=== PATIENT | female | born 1970 | race Caucasian/White ===

== ENCOUNTER → 2016-12-18 | Outpatient (CLI) | payer BC ==
--- NOTE | 2016-12-18 10:21 | KCIC ---
DATE: 12/18/2016 EXAM: MAMMO JAMES SCREENING BILATERAL HISTORY: Screening COMPARISON: 11/21/2015 This study was interpreted with the benefit of Computerized Aided Detection (CAD). FINDINGS: Breast Density: SCATTERED The breast parenchyma shows scattered fibroglandular densities. Breast parenchyma level B. There has not been a significant change in the appearance of the breasts relative to the previous exam IMPRESSION: Benign finding BI-RADS CATEGORY: 2 BENIGN FINDING(S) RECOMMENDED FOLLOW-UP: 12M 12 MONTH FOLLOW-UP PQRS compliance statement: Patient information was entered into a reminder system with a target due date 12/18/2017 for the next mammogram. Mammography is a sensitive method for finding small breast cancers, but it does not detect them all and is not a substitute for careful clinical examination. A negative mammogram does not negate a clinically suspicious finding and should not result in delay in biopsying a clinically suspicious abnormality. "Our facility is accredited by the [employer] Mammography [employer]."
== END | disposition home or self-care (01) ==
LOC: KCIC MAMMO 09:29
PROVIDERS: ATTEND Family Medicine
DX: Z12.31 Encounter for screening mammogram for malignant neoplasm of breast (principal)
CPT/HCPCS: 77063; G0202; 77067

== ENCOUNTER → 2018-02-05 | Outpatient (CLI) | payer BC ==
--- NOTE | 2018-02-06 12:33 | KCIC ---
Bilateral digital screening mammograms with 3-D tomosynthesis: Reason for examination: Routine screening. Comparison is made to previous studies dated back to 11/18/2014. Bilateral mammograms in CC and oblique projections were obtained with 2-D imaging and 3-D tomosynthesis imaging on a Siemens Inspiration unit and reviewed on the workstation. Interpretation was made with the benefit of CAD. The skin and nipples show no abnormalities. No abnormal axillary lymph nodes are seen. The breast parenchyma shows scattered fatty and fibroglandular density. (Breast density: Category B.) There are no dominant masses, suspicious calcifications or architectural distortion. Impression: No evidence of malignancy. Recommend routine screening. BI-RAD Category 1: Negative. "Our facility is accredited by the [employer] Mammography [employer]." This patient's information has been entered into a reminder system for the patient to be notified with the results of her examination and a target date for the next mammogram. Electronically signed by: Yaritza Ley MD (02/06/2018 12:29 PM) [id number]
== END | disposition home or self-care (01) ==
LOC: KCIC MAMMO 15:51
PROVIDERS: ATTEND Family Medicine
DX: Z12.31 Encounter for screening mammogram for malignant neoplasm of breast (principal)
CPT/HCPCS: 77063; 77067

== ENCOUNTER → 2019-03-03 | Outpatient (CLI) | payer OTHER ==
--- NOTE | 2019-03-05 10:20 | KCIC ---
BILATERAL SCREENING MAMMOGRAM, 3-D History: Routine screening. Comparison: Bilateral mammogram 02/05/2018. Technique: MLO and CC digital tomosynthesis (3D) images obtained. Radiologist reviewed these images on dedicated workstation. Findings: Breast Tissue Density B : There are scattered areas of fibroglandular density. There are no dominant masses, suspicious microcalcifications, or architectural distortion. IMPRESSION: No mammographic evidence of malignancy. Recommend routine screening. BI-RADS category 1: Negative. The images were reviewed with computer-aided detection. Patient information is entered into reminder system with a target due date for the next screening mammogram. Mammography is the most sensitive method for finding small breast cancers, but it does not detect them all and is not a substitute for careful clinical examination. A negative mammogram does not negate a clinically suspicious finding and should not result in delay in biopsying a clinically suspicious abnormality. "Our facility is accredited by the [employer] Mammography [employer]." Electronically signed by: Abrahan Justice MD (03/05/2019 10:17 AM) [id number]
== END | disposition home or self-care (01) ==
LOC: KCIC MAMMO 09:55
PROVIDERS: ATTEND Family Medicine
DX: Z12.31 Encounter for screening mammogram for malignant neoplasm of breast (principal)
CPT/HCPCS: 77063; 77067

== ENCOUNTER → 2020-03-08 | Outpatient (CLI) | payer OTHER ==
--- NOTE | 2020-03-08 14:21 | KCIC ---
Bilateral digital screening mammograms and tomosynthesis Reason for examination: Routine screening. Comparison is made to previous study dated March 03, 2019 and priors Routine CC and MLO digital views obtained. Interpretation was made with the benefit of CAD. The skin and nipples show no abnormalities. No abnormal lymph nodes are seen. The breast parenchyma i s scattered fibroglandular elements. (Breast density: Category B.) There are no suspicious masses, saravia spicious calcifications or architectural distortions. Impression: Negative mammogram. Recommend routine screening. BI-RADS Category 1: Negative. "Our facility is accredited by the [employer] Mammography Program." This patient's information has been entered into a reminder system for the patient to be notified wit h the results of her examination and a target date for the next mammogram. Electronically signed by: Richard Edwards MD (03/08/2020 2:18 PM) [id number]
== END ==
LOC: KCIC MAMMO 08:23
PROVIDERS: ATTEND Family Medicine
DX: Z12.31 Encounter for screening mammogram for malignant neoplasm of breast (principal)
CPT/HCPCS: 77063; 77067

== ENCOUNTER → 2020-12-13 | Outpatient (CLI) | payer OTHER ==
--- NOTE | 2020-12-13 10:02 | KCIC ---
EXAM: CT CORONARY CALCIUM SCORING. HISTORY: Coronary risk factors. Calcium scoring is requested. Hyperlipidemia, family history of coron jamila disease. COMPARISON: None. FINDINGS: Limited noncontrast CT of the chest was performed for coronary calcium scoring. Refer to e worksheets for full detail. *One or more of the following individualized dose reduction techniques were utilized for this examination: 1. Automated exposure control. 2. Adjustment of the mA and/or kV according to patient size. 3. Use of iterative reconstruction technique. Coronary calcium scoring is as follows: LMA: 0. LAD: 0. LCX: 0. RCA: 0. PDA: 0. Total: 0. This places the patient at the 0th percentile in age- and sex-matched subjects. The included portions of the chest reveal the following. Bone windows reveal no suspicious lesions. I mages of the upper abdomen reveal diffuse hepatic steatosis. There are no pathologically enlarged mediastinal lymph nodes. There is no pleural or pericardial effu vivian. The heart is not enlarged. There is mild dependent atelectasis. IMPRESSION: 1. Coronary calcium score 0. 2. Diffuse hepatic steatosis. Electronically signed by: Liyah Velazco MD (12/13/2020 10:00 AM) [id number]
== END ==
LOC: KCIC CT 08:49
PROVIDERS: ATTEND Nurse Practitioner Family
DX: E78.5 Hyperlipidemia, unspecified (principal); K76.0 Fatty (change of) liver, not elsewhere classified; J98.11 Atelectasis
CPT/HCPCS: 75571

== ENCOUNTER → 2021-03-24 | Outpatient (CLI) | payer OTHER ==
--- NOTE | 2021-03-24 14:12 | KCIC ---
Bilateral digital screening mammograms with 3-D tomosynthesis: Reason for examination: Routine screening. Comparison is made to previous studies dated back to 11/18/2014. Bilateral mammograms in CC and oblique projections were obtained with 2-D imaging and 3-D tomosynthes is imaging on a Siemens Inspiration unit and reviewed on the workstation. Interpretation was made wit h the benefit of CAD. The skin and nipples show no abnormalities. No abnormal axillary lymph nodes are seen. The breast par enchyma shows scattered fatty and fibroglandular density. (Breast density: Category B.) There are no dominant masses, suspicious calcifications or architectural distortion. Impression: No evidence of malignancy. Recommend routine screening. BI-RAD Category 1: Negative. "Our facility is accredited by the [employer] Mammography Program." This patient's information has been entered into a reminder system for the patient to be notified wit h the results of her examination and a target date for the next mammogram. Electronically signed by: Yaritza Ley MD (03/24/2021 2:10 PM) [id number]
== END ==
LOC: KCIC MAMMO 09:15
PROVIDERS: ATTEND Family Medicine
DX: Z12.31 Encounter for screening mammogram for malignant neoplasm of breast (principal)
CPT/HCPCS: 77063; 77067